=== PATIENT | female | born 1965 | race Caucasian/White ===

== ENCOUNTER 2020-08-27 21:43 | Emergency (ER) | payer OTHER, MEDICAID, SELFPAY ==
[2020-08-27 22:01] VITALS: BP 193/97; PULSE 89; RESP 22; TEMP 36.6; O2SAT 99
--- NOTE | 2020-08-27 23:14 | DI.CT.S_ITS ---
PROCEDURE: CT ORBIT BI W CON INDICATIONS: acute eye pain, medial scleral bleed, possible orbital hematoma TECHNIQUE: After the administration of intravenous contrast, 2.5 mm axial images acquired through the orbits, with coronal and sagittal reformats. For radiation dose reduction, the following was used: automated exposure control, adjustment of mA and/or kV according to patient size. COMPARISON: None. FINDINGS: Image quality: Excellent. Orbits: Globes are symmetrical. The optic nerves are normal in size and enhancement. No retrobulbar masses or fat abnormalities. The extra-ocular muscles are normal and symmetrical in appearance. Lacrimal glands are normal. Optic chiasm is normal. Periorbital soft tissues are normal. Intracranial: The pituitary gland is normal, without sellar or suprasellar masses. Visualized cerebral hemispheres, brainstem, and spinal cord appear normal. Bones and sinuses: Visualized calvarium and facial bones appear intact. Visualized sinuses and mastoids are clear. IMPRESSION: Normal for age, source of current symptoms is not seen. Dictated by: Endy Su M.D. on 08/28/2020 at 8:34 Approved by: Endy Su M.D. on 08/28/2020 at 8:34
[2020-08-27] MEDS: OXYCODONE/ACETAMINOPHEN 5/325 TABLET 1 TAB PO (23:38)
--- NOTE | 2020-08-28 00:39 | ED_ITS ---
HPI - Eye Problem General Chief complaint: Eye Problems Stated complaint: visual changes right eye Time Seen by Provider: 08/27/20 22:55 Source: patient Mode of arrival: Ambulatory History of Present Illness HPI Narrative: 54-year-old woman with a history of high blood pressure, anxiety, bleeding ulcers with 2 large prior GI bleeds not anticoagulated and currently not taking her blood pressure medication presents with acute right eye pain. She was with her at the [employer] and felt a pop in her eye, describes no specific trauma at the time. She thought that she perhaps had an eyelash that had gotten in her eye. When she went to the bathroom to look there was a large subconjunctival hemorrhage and she was having increasing retro-orbital pain radiating to the right jehovah's witness. She comes in for further evaluation. Related Data Allergies Allergy/AdvReac Type Severity Reaction Status Date / Time codeine Allergy Verified 08/27/20 23:23 Review of Systems Review of Systems Narrative: Pertinent positive and negative findings as per HPI Remainder of review of systems is otherwise unremarkable for Constitutional: Fevers, chills, weakness ENT: No sore throat, neck pain, ear pain CV: Chest pain, palpitations, Respiratory: Cough, wheeze, dyspnea GI: Nausea, vomiting, diarrhea, : Dysuria, hematuria, Patient History Medical History Anxiety Cocaine use disorder History of upper gastrointestinal hemorrhage Hypertension Exam Narrative Exam Narrative: General: Alert appropriate in no acute distress HEENT: Significant right subconjunctival hemorrhage on the medial aspect of the eye. There is actually a visible subconjunctival hematoma suggesting that the hemorrhage is certainly going to expand to include the entire sclera. There are no visual acuity changes. No pain with accommodation. Pupils are equal and reactive bilaterally. She has some minor tenderness in the lateral aspect of the orbital fossa and tenderness radiating to the right jehovah's witness without trauma appreciated Respiratory: Able to speak in full sentences, no obvious respiratory distress Skin: No obvious rashes, warm and dry Neurologic: Grossly intact no obvious asymmetries or abnormalities Psych, appropriate insight and affect, cooperative Initial Vital Signs Initial Vital Signs: Vital Signs Temperature 97.8 F 08/27/20 22:01 Pulse Rate 89 08/27/20 22:01 Respiratory Rate 22 08/27/20 22:01 Blood Pressure 193/97 H 08/27/20 22:01 Pulse Oximetry 99 08/27/20 22:01 Course Orders Ordered: ED Orders 08/27/20 23:14 CT orbit BI w con Stat Discontinued Medications Oxycodone/Acetaminophen (Oxycodone/Acetaminophen 5/325 Tablet) 1 tab PO NOW ONE Stop: 08/27/20 23:15 Last Admin: 08/27/20 23:38 Dose: 1 tab Documented by: NUNU Oxycodone/Acetaminophen (Oxycodone/Apap 5/325 Prepack) 1 bottle MISC SEEINSTR ONE Stop: 08/28/20 00:46 Vital Signs Vital signs: Vital Signs - 8 hr 08/27/20 22:01 Temperature 97.8 F Pulse Rate 89 Respiratory Rate 22 Blood Pressure 193/97 H Pulse Oximetry 99 [facility] - Eye Problem Medical Records Attestation: I reviewed the patient's medical records. Imaging Data CT orbits: Radiologist's Impression: Globes are intact and normal in attenuation. No orbital hematoma extraconal and intraconal fat is clean. Normal intra-ocular muscles. Impression: No acute findings Bridgette Emerson MD [facility] Narrative Medical decision making narrative: 54-year-old woman with a fairly impressive right-sided medial subconjunctival hemorrhage with with actually appears to be subconjunctival hematoma. No evidence of retro-orbital abnormalities, infection or trauma. Reassurance is given. She is safe for home discharge Discharge Plan Departure Patient Disposition: Home Clinical Impression: Subconjunctival hemorrhage Qualifiers: Laterality: right Qualified Code(s): H11.31 - Conjunctival hemorrhage, right eye Instructions: DI for Subconjunctival Hemorrhage Activity Restrictions/Additional Instructions: Thank you for coming in today This is all superficial bleeding under the surface covering of your eyeball. It does not involve the actual eyeball or any of the structures behind the eyeball. Any time there is any swelling to the skin over the eyeball it is incredibly painful. This is why your having so much pain. All this blood will spread out and likely involve the entire weight part of your eyeball before it starts to clear. Fortunately, this blood will players assistant so the pain will improve significantly. You can use the Percocet sparingly over the next 24 hours. Using both ice or heat to figure out which helps best with the pain would be appropriate. If you notice visual changes, inability to move the eyeball or new or changing symptoms please feel free to return to the emergency department
[2020-08-28] MEDS: OXYCODONE/APAP 5/325 PREPACK 1 BOTTLE MISC (01:06)
[2020-08-28 01:07] VITALS: BP 133/77; BP 144/80; PULSE 68; PULSE 80; RESP 20; O2SAT 99
== END 2020-08-28 01:08 | disposition home or self-care (01) ==
PROVIDERS: Emergency Provider Emergency Medicine
DX: H11.31 Conjunctival hemorrhage, right eye (principal)
CPT/HCPCS: 70481; 99281; 99284; Q9967